=== PATIENT | male | born 1995 ===

== ENCOUNTER 2017-08-23 18:17 | Emergency (ER) | payer OTHER ==
[~2017-08-23] VITALS: Ht 172.7 cm; Wt 78.5 kg
[~2017-08-23 18:17] MED LIST: IBUP-1050 PO; MULT-610 PO
[2017-08-23 18:20] VITALS: TEMP 37.1; Ht 172.7 cm; Wt 78.5 kg
--- NOTE | 2017-08-23 18:38 | EMERGENCY ROOM VISIT NOTE ---
History Report prepared by Shawn: Alina De La Rosa Under the Supervision of: Dr. Gerardo Hunter D.O. First contact with patient: 18:24 Chief Complaint: WRIST PAIN Stated Complaint: SPRAIN, ARM AND HAND History of Present Illness The patient is a 21 year old male who presents to the Emergency Room with complaints of persistent right wrist pain which began around 2200 yesterday. He reports that he fell yesterday, injuring his right wrist. Since the fall, his wrist has been swelling up and he has been unable to move it or his fingers without any pain or discomfort. The patient states that his pain does not radiate past his elbow or shoulder. Source of History: patient Onset: 2199 yesterday Position: other (right wrist) Quality: other (wrist pain) Timing: other (persistent) Note: Associated symptoms include: wrist swelling and unable to move wrist or fingers without pain or discomfort. Patient denies right wrist pain radiating to elbow or shoulder. Review of Systems See HPI for pertinent positives & negatives. A total of 10 systems reviewed and were otherwise negative. Past Medical & Surgical Medical Problems: (1) High cholesterol Family History Patient reports no known family medical history. Patient does not report any pertinent family history. Social History Smoking Status: Never Smoker Smokeless Tobacco Use: No Alcohol Use: occasionally Drug Use: none Marital Status: single Housing Status: lives with roommate Occupation Status: [employer] student Current/Historical Medications Scheduled Acetaminophen (Tylenol), 1,000 MG PO PRN UD Flaxseed (Linseed) (Flax Seed Oil), 1 CAP PO DAILY Scheduled PRN Oxycodone Immediate Rel Tab (Roxicodone Ir), 1-2 TAB PO Q4H PRN for Severe Pain Allergies Coded Allergies: Penicillins (Unverified Allergy, Unknown, RASH, 12/29/15) Physical Exam Vital Signs Date Time Temp Pulse Resp B/P (MAP) Pulse Ox O2 Delivery O2 Flow Rate FiO2 08/23/17 20:03 98 16 139/98 98 08/23/17 18:20 37.1 95 20 148/86 100 Room Air Physical Exam GENERAL: Patient is awake, alert, and in no acute distress. Patient appears very anxious and uncomfortable. EYES: The conjunctivae are clear. The pupils are round and reactive. EARS, NOSE, MOUTH AND THROAT: The nose is without any evidence of any deformity. Mucous membranes are moist tongue is midline NECK: The neck is nontender and supple. RESPIRATORY: Normal respiratory effort is noted there is no evidence of wheezing rhonchi or rales CARDIOVASCULAR: Regular rate and rhythm noted there no murmurs rubs or gallops normal S1 normal S2 GASTROINTESTINAL: The abdomen is soft. Bowel sounds are present in all quadrants. Abdomen is nontender BACK: No midline tenderness or or step-off noted range of motion in flexion extension as well as rotation no signs of muscle spasm noted MUSCULOSKELETAL/EXTREMITIES: Significant swelling and tenderness to ventral aspect of right wrist. There is no evidence of gross deformity full range of motion is noted in the hips and shoulders SKIN: There is no obvious evidence of any rash. There are no petechiae, pallor or cyanosis noted. NEUROLOGIC: Patient is awake alert and oriented x3 strength is symmetric patellar reflexes are 2+ bilaterally Medical Decision & Procedures ER Provider Diagnostic Interpretation: Radiology results as stated below per my review and radiologist interpretation: R HAND MIN 3 VIEWS ROUTINE CLINICAL HISTORY: fall trauma. Pain. COMPARISON: None. DISCUSSION: Transverse fracture distal radius. Avulsion ulnar styloid. Remaining osseous structures are unremarkable. There is no evidence for soft tissue swelling. IMPRESSION: Transverse fracture distal radius. Avulsion ulnar styloid. Hilar and widespread negative evaluation of the hand. The above report was generated using voice recognition software. It may contain grammatical, syntax or spelling errors. Electronically signed by: Savage Marie M.D. 08/23/2017 7:04 PM Dictated Date/Time: 08/23/2017 7:03 PM R WRIST MIN 3 VIEWS ROUTINE CLINICAL HISTORY: fall trauma COMPARISON: None. DISCUSSION: Transverse somewhat angled fracture distal radial metaphysis. Avulsion ulnar styloid. No evidence of dislocation. There is no evidence for soft tissue swelling. IMPRESSION: Transverse fracture distal radius showing moderate angulation. Small avulsion ulnar styloid. The above report was generated using voice recognition software. It may contain grammatical, syntax or spelling errors. Electronically signed by: Savage Marie M.D. 08/23/2017 7:03 PM Dictated Date/Time: 08/23/2017 7:02 PM Medications Administered Medications (Trade) Dose Ordered Sig/Dasha Route Start Time Stop Time Status Last Admin Dose Admin Oxycodone HCl (Roxicodone Immediate Rel 5MG Home Pack) 1 homepack UD ONCE PO 08/23/17 19:15 08/23/17 19:16 DC 08/23/17 19:15 1 HOMEPACK Oxycodone HCl (Roxicodone Immediate Rel Tab) 5 mg NOW STAT PO 08/23/17 19:18 08/23/17 19:19 DC 08/23/17 19:28 5 MG ED Course 1826: The patient was evaluated in room A10. A complete history and physical examination were performed. 1904: I discussed the patient's case with Dr. Cancino, orthopedic. He recommends that the patient practices splinting and icing his wrist and that he follows up with him in his office. 1914: Ordered Oxycodone HCl 1 homepack PO. 1917: Ordered Oxycodone HCl 5mg PO. 2000: Upon reevaluation, the patient is resting comfortably . I discussed the results and treatment plan with him. He verbalized agreement of the treatment plan. The patient was discharged home. Medical Decision Prior records reviewed and summarized above. Triage Nursing notes reviewed and agree them. The patient's history was concerning for traumatic injury. Differential diagnosis: Etiologies such as fracture, dislocation, neurovascular compromise, compartment syndrome, soft tissue injury, as well as others were entertained. The patient is a 21-year-old male who presented to the emergency department for an evaluation after a right wrist injury. The patient sustained the injury the night before. He had significant swelling over the area. The patient's radiographic studies were discussed with him. He was treated with pain medication and splinting. I discussed his case with the on-call orthopedic surgeon. After reviewing the case I feel the patient would do better if the swelling had a chance to improve prior to any reduction or definitive treatment. The on-call orthopedic physician agrees with this plan. I discussed this with the patient. He was encouraged to continue all medications as prescribed and keep the extremity elevated and iced as much as possible. He was also instructed on what things to watch for and to return to the emergency department if symptoms change worsen or the need arises. Specifically he had severe pain numbness discoloration of the digits or if any other worrisome symptoms develop. Medication Reconcilliation Current Medication List: was personally reviewed by me Blood Pressure Screening Patient's blood pressure: Normal blood pressure Blood pressure disposition: Did not require urgent referral Consults Time Called: 1902 Consulting Physician: Dr. Cancino, orthopedic Returned Call: 1904 I discussed the patient's case with Dr. Cancino, orthopedic. He recommends that the patient practices splinting and icing his wrist and that he follows up with him in his office. Impression Primary Impression: Fracture of right distal radius Additional Impression: Right distal ulnar fracture Scribe Attestation The scribe's documentation has been prepared under my direction and personally reviewed by me in its entirety. I confirm that the note above accurately reflects all work, treatment, procedures, and medical decision making performed by me. Departure Information Dispostion Home / Self-Care Prescriptions Oxycodone Immediate Rel Tab (ROXICODONE IR) 5 Mg Tab 1-2 TAB PO Q4H Y for Severe Pain, #15 TAB Prov: Gerardo Hunter, DO 08/23/17 Referrals No Doctor, Assigned (PCP) Forms HOME CARE DOCUMENTATION FORM, IMPORTANT VISIT INFORMATION, WORK / SCHOOL INSTRUCTIONS Patient Instructions My [facility] Additional Instructions Continue to use Motrin and Tylenol as directed for mild pain. Continue to keep the arm elevated and ice as instructed. Call the orthopedic physician to schedule a follow-up appointment for this week either Friday or Friday. Return to the emergency department immediately if symptoms change worsen or the need arises. Problem Qualifiers Primary Impression: Fracture of right distal radius Encounter type: initial encounter Fracture type: closed Fracture morphology : Colles' Qualified Codes: S52.531A - Colles' fracture of right radius, initial encounter for closed fracture Additional Impression: Right distal ulnar fracture Encounter type: initial encounter Fracture type: closed Fracture morphology : unspecified fracture morphology Qualified Codes: S52.601A - Unspecified fracture of lower end of right ulna, initial encounter for closed fracture
--- NOTE | 2017-08-23 19:04 | DIAGNOSTIC IMAGING REPORT ---
R WRIST MIN 3 VIEWS ROUTINE CLINICAL HISTORY: fall trauma COMPARISON: None. DISCUSSION: Transverse somewhat angled fracture distal radial metaphysis. Avulsion ulnar styloid. No evidence of dislocation. There is no evidence for soft tissue swelling. IMPRESSION: Transverse fracture distal radius showing moderate angulation. Small avulsion ulnar styloid. The above report was generated using voice recognition software. It may contain grammatical, syntax or spelling errors. Electronically signed by: Savage Marie M.D. 08/23/2017 7:03 PM Dictated Date/Time: 08/23/2017 7:02 PM
[2017-08-23] MEDS ORDERED: ACET-1256 PO (19:05)
[2017-08-23] MEDS ORDERED: FLAX1CAP11 PO (19:05)
--- NOTE | 2017-08-23 19:05 | DIAGNOSTIC IMAGING REPORT ---
R HAND MIN 3 VIEWS ROUTINE CLINICAL HISTORY: fall trauma. Pain. COMPARISON: None. DISCUSSION: Transverse fracture distal radius. Avulsion ulnar styloid. Remaining osseous structures are unremarkable. There is no evidence for soft tissue swelling. IMPRESSION: Transverse fracture distal radius. Avulsion ulnar styloid. Hilar and widespread negative evaluation of the hand. The above report was generated using voice recognition software. It may contain grammatical, syntax or spelling errors. Electronically signed by: Savage Marie M.D. 08/23/2017 7:04 PM Dictated Date/Time: 08/23/2017 7:03 PM
[2017-08-23] MEDS ORDERED: OXYCODONE IR HOME PACK PO ONE (19:15)
[2017-08-23] MEDS ORDERED: OXYCODONE HCL IR 5 MG TAB (IMMEDIATE RELEASE) PO STA (19:18)
[2017-08-23] MEDS ORDERED: OXYC1TAB3 PO (19:48)
[2017-08-23 20:03] VITALS: BP 139/98; PULSE 98; O2SAT 98
== END 2017-08-23 20:05 | disposition home or self-care (01) ==
LOC: C.EDB 18:19 → C.EDA 20:05
DX: S52.531A Colles' fracture of right radius, initial encounter for closed fracture (principal); S52.601A Unspecified fracture of lower end of right ulna, initial encounter for closed fracture; X58.XXXA Exposure to other specified factors, initial encounter; E78.00 Pure hypercholesterolemia, unspecified; Z88.0 Allergy status to penicillin